=== PATIENT | male | born 1960 | race Caucasian/White ===

== ENCOUNTER 2022-04-09 10:30 | Outpatient (RCR) | payer OTHER, SELFPAY ==
[2022-03-05 09:40] VITALS: BMI 34.0
[2022-03-05 09:46] VITALS: BMI 34.0
== END 2022-05-26 09:50 | disposition home or self-care (01) ==
LOC: ANHDMC 10:30
PROVIDERS: PCP Nurse Practitioner Family; Visit Provider Nurse Practitioner
DX: E11.65 Type 2 diabetes mellitus with hyperglycemia (principal); Z71.3 Dietary counseling and surveillance
CPT/HCPCS: 97802; G0108

== ENCOUNTER 2022-07-09 10:30 | Outpatient (RCR) | payer OTHER, SELFPAY | END 2022-07-09 17:39 | disposition home or self-care (01) | LOC: ANHDMC 10:30 | PROVIDERS: PCP Nurse Practitioner Family; Visit Provider Nurse Practitioner | DX: E11.65 Type 2 diabetes mellitus with hyperglycemia (principal); Z71.89 Other specified counseling | CPT/HCPCS: G0108 ==

== ENCOUNTER → 2023-04-07 13:46 | Outpatient (CLI) | payer OTHER, SELFPAY ==
--- NOTE | ~2023-04-07 | XR_ITS ---
XR foot LT min 3V DATE: 04/07/2023 14:15 INDICATION: Stubbed fifth toe. Left foot pain. TECHNIQUE: 4 views COMPARISON: None FINDINGS: Prominent posterior and moderate plantar calcaneal enthesopathy. There is soft tissue swelling of the dorsum of the foot in particular. There is a transverse nondisplaced metaphyseal fracture of the proximal phalanx of the fifth toe, wit hout apparent intra-articular extension. There is no displacement or angulation. No other fracture or dislocation is detected. Mild osteoarthritis at first metatarsophalangeal joint. IMPRESSION: Transverse nondisplaced fracture of the metaphysis of the proximal phalanx of the fifth t oe Plantar and posterior calcaneal enthesopathy Mild osteoarthritis at first metatarsophalangeal joint. Reviewed, dictated and finalized at location B. IMPRESSION: Transverse nondisplaced fracture of the metaphysis of the proximal phalanx of the fifth toe Plantar and posterior calcaneal enthesopathy Mild osteoarthritis at first metatarsophalangeal joint.
== END ==
PROVIDERS: PCP Nurse Practitioner Family; Visit Provider Nurse Practitioner Family
DX: S92.515A Nondisplaced fracture of proximal phalanx of left lesser toe(s), initial encounter for closed fracture (principal); W22.8XXA Striking against or struck by other objects, initial encounter
CPT/HCPCS: 73630